=== PATIENT | female | born 1950 | race Two or more races ===

== ENCOUNTER 2016-04-15 00:12 | Inpatient (IN) | payer MEDICARE, MEDICAID ==
[~2016-04-15] VITALS: Ht 157.5 cm; Wt 83.8 kg
[~2016-04-15 00:12] MED LIST: ASPI81TA27 PO; GABA-494 PO; LOSA100T27 PO; OYST500T48 OR; PRAV20TA3 PO; TRAM50TA2 PO
[2016-04-15] MEDS ORDERED: SODIUM CHLORIDE 0.9% 1,000 ML IV ONE (10:43)
[2016-04-15] MEDS ORDERED: PROMETHAZINE HCL 25 MG/ML 1ML IV ONE (10:45)
[2016-04-15] MEDS ORDERED: NALBUPHINE HCL 10 MG/1ml INJECTION IV ONE (10:45)
[2016-04-15 11:20] LABS: Basophils # (auto) 0.1 uL; Basophils % (auto) 0.9 % (0.0-2.0); Eosinophils # (auto) 0.1 uL; Eosinophils % (auto) 1.4 % (0.0-7.0); Hematocrit 27.3 % (36.0-46.0); Hemoglobin 9.1 g/dL (12.2-16.2); Lymphocytes # (auto) 1.6 uL; Mean Corpuscular Hemoglobin 29.3 pg (28.0-32.0); Mean Corpuscular Hgb Conc. 33.3 g/dL (32.0-36.0); Mean Platelet Volume 6.7 fL (7.4-10.4); Monocytes # (auto) 0.3 uL; Monocytes % (auto) 5.4 % (0.0-12.0); Neutrophils # (auto) 4.3 uL; Neutrophils % (auto) 67.3 % (37.0-80.0); Platelet Count (auto) 409 10^3/uL (140-450); Red Cell Distribution Width 13.7 % (11.6-16.0); White Blood Cell 6.4 10^3/uL (4.4-10.8)
[2016-04-15 11:33] LABS: INR 1.04 (0.9-1.15); Partial Thromboplastin Time 24.6 sec (22.64-33.71); Prothrombin Time 10.7 sec (9.37-12.3)
[2016-04-15 11:53] LABS: Albumin 3.2 g/dL (3.4-5.0); BUN/Creatinine Ratio 21.7; Bilirubin, Total 0.3 mg/dL (0.2-1.0); Calcium 8.7 mg/dL (8.5-10.1); Magnesium 2.4 mg/dL (1.6-2.6); Potassium 4.4 mmol/L (3.5-5.1); Total Protein 7.2 g/dL (6.4-8.2)
[2016-04-15 13:48] LABS: Urine Bilirubin Negative (Negative); Urine Blood Negative /uL (Negative); Urine Color Colorless (Yellow); Urine Glucose Normal (Normal); Urine Ketone Negative (Negative); Urine Nitrite Negative (Negative); Urine RBC 1 /hpf (0 - 4); Urine Squamous Epithelial Cell FEW /hpf (<5); Urine Urobilinogen Normal (Negative); Urine pH 5.5 (5.0-8.0)
[2016-04-15] MEDS ORDERED: cefTRIAXone 1GM/50ML D5W 50 ML IV ONE ×2 (15:15→15:30)
[2016-04-15] MEDS: SODIUM CHLORIDE 0.9% 1,000 ML IV SCH (15:17)
[2016-04-15] MEDS ORDERED: HYDROcodone-ACET 5/325MG TAB PO PRN (15:30)
[2016-04-15] MEDS ORDERED: MORPHINE SULF INJ 2 MG/ML SYRINGE 1ML IV PRN ×2 (15:30)
[2016-04-15] MEDS ORDERED: ACETAMINOPHEN 500 MG TAB PO PRN (15:30)
[2016-04-15] MEDS ORDERED: TEMAZEPAM 15 MG CAP PO PRN (15:30)
[2016-04-15] MEDS ORDERED: PROMETHAZINE HCL 25 MG/ML 1ML IV PRN (15:30)
[2016-04-15] MEDS ORDERED: traMADol HCL 50 MG TAB PO PRN (15:30)
[2016-04-15] MEDS ORDERED: LACTULOSE 20Gm/30ML SOLN PO PRN (15:30)
[2016-04-15] MEDS ORDERED: LORazepam 0.5 MG TAB PO PRN (15:30)
[2016-04-15] MEDS ORDERED: NITROGLYCERIN 0.4 MG SL TAB SL PRN (15:30)
[2016-04-15] MEDS ORDERED: ASPirin-EC 81 mg tab PO ONE (15:45)
[2016-04-15] MEDS ORDERED: GABAPENTIN 100 MG CAP PO ONE (15:45)
[2016-04-15 15:48] LABS: Cholesterol 121 mg/dL (<200); HDL Cholesterol 39 mg/dL (40-59); LDL Cholesterol 63 mg/dL (<100); Triglycerides 212 mg/dL (<150)
[2016-04-15] MEDS ORDERED: LOSARTAN POTASSIUM 50 MG TAB PO ONE (16:00)
[2016-04-15 16:01] LABS: Temperature: 23.1 C (20.0-25.0)
[2016-04-15] MEDS: ENOXAPARIN SOD 40 MG/0.4 ML SYRINGE SC SCH (16:33)
[2016-04-15] MEDS ORDERED: OYSTER SHELL CALCIUM 500 MG OR SCH (22:00)
[2016-04-15] MEDS: FAMOTIDINE 20 MG TAB PO SCH (22:00)
[2016-04-15] MEDS: ATORVASTATIN 20 MG TAB PO SCH (22:00)
[2016-04-15 22:10] VITALS: BP 153/78
[2016-04-16] MEDS: SODIUM CHLORIDE 0.9% 1,000 ML IV SCH (03:47)
[2016-04-16 05:09] VITALS: BP 95/52
[2016-04-16 06:49] LABS: Basophils # (auto) 0 uL; Basophils % (auto) 0.6 % (0.0-2.0); Eosinophils # (auto) 0.1 uL; Eosinophils % (auto) 1.5 % (0.0-7.0); Hematocrit 27.9 % (36.0-46.0); Hemoglobin 9.3 g/dL (12.2-16.2); Lymphocytes # (auto) 1.6 uL; Lymphocytes % (auto) 29.4 % (10.0-50.0); Mean Corpuscular Hemoglobin 29.2 pg (28.0-32.0); Mean Corpuscular Hgb Conc. 33.3 g/dL (32.0-36.0); Mean Corpuscular Volume 87.8 fL (80.0-100.0); Mean Platelet Volume 7.3 fL (7.4-10.4); Monocytes # (auto) 0.3 uL; Monocytes % (auto) 5.7 % (0.0-12.0); Neutrophils # (auto) 3.4 uL; Neutrophils % (auto) 62.8 % (37.0-80.0); Platelet Count (auto) 368 10^3/uL (140-450); White Blood Cell 5.4 10^3/uL (4.4-10.8)
[2016-04-16 07:03] LABS: INR 1.04 (0.9-1.15); Prothrombin Time 10.7 sec (9.37-12.3)
[2016-04-16 07:12] LABS: BUN/Creatinine Ratio 15.8; Calcium 8.1 mg/dL (8.5-10.1); Potassium 3.9 mmol/L (3.5-5.1)
[2016-04-16 07:15] LABS: Bilirubin, Total 0.2 mg/dL (0.2-1.0); Total Protein 6.8 g/dL (6.4-8.2)
[2016-04-16 09:00] VITALS: BP 151/72
[2016-04-16] MEDS ORDERED: cefTRIAXone 1GM/50ML D5W 50 ML IV SCH (09:00)
[2016-04-16] MEDS ORDERED: ASPirin-EC 81 mg tab PO SCH (10:00)
[2016-04-16] MEDS ORDERED: LOSARTAN POTASSIUM 50 MG TAB PO SCH (10:00)
[2016-04-16] MEDS ORDERED: GABAPENTIN 100 MG CAP PO SCH (10:00)
[2016-04-16] MEDS: ATORVASTATIN 20 MG TAB PO SCH (10:40)
[2016-04-16] MEDS: ENOXAPARIN SOD 40 MG/0.4 ML SYRINGE SC SCH (10:40)
[2016-04-16] MEDS: FAMOTIDINE 20 MG TAB PO SCH (10:41)
[2016-04-16 13:26] VITALS: BP 151/72
== END 2016-04-16 14:26 | disposition home or self-care (01) | DRG 69 ==
LOC: EDBD 00:12 → ER 00:15 → TELE 00:16 → TELE-EAST 22:16
PROVIDERS: ADMIT Internal Medicine; ATTEND Internal Medicine
DX: G45.9 Transient cerebral ischemic attack, unspecified (principal); N39.0 Urinary tract infection, site not specified; E44.1 Mild protein-calorie malnutrition; D64.9 Anemia, unspecified; I10 Essential (primary) hypertension; I25.10 Atherosclerotic heart disease of native coronary artery without angina pectoris; M19.90 Unspecified osteoarthritis, unspecified site; E03.9 Hypothyroidism, unspecified; H26.9 Unspecified cataract; E66.01 Morbid (severe) obesity due to excess calories; E78.5 Hyperlipidemia, unspecified; Z79.82 Long term (current) use of aspirin; Z95.0 Presence of cardiac pacemaker; Z86.73 Personal history of transient ischemic attack (TIA), and cerebral infarction without residual deficits; Z87.891 Personal history of nicotine dependence; Z98.51 Tubal ligation status; Z68.33 Body mass index [BMI] 33.0-33.9, adult
CPT/HCPCS: 36415; 70450; 71020; 80053; 80061; 81001; 82550; 82607; 82746; 83735; 84443; 85025; 85610; 85652; 85730; 87040; 87081; 87086; 93005; 93306; 93886; 94761; 96361; 96365; 96366; 96375; G0434; J0696

== ENCOUNTER 2017-04-10 08:24 | Emergency (ER) | payer MEDICARE, MEDICAID ==
[~2017-04-10] VITALS: Ht 160 cm; Wt 83.9 kg
[~2017-04-10 08:24] MED LIST changes: -GABA-494 PO; +GABA100C9 PO
[2017-04-10] MEDS ORDERED: fentaNYL CITRATE 5 ML ONE (13:34)
[2017-04-10] MEDS ORDERED: MIDAZOLAM HCL 5 MG/ML-1ML VIAL IV ONE (13:45)
[2017-04-10] MEDS ORDERED: fentaNYL CITRATE 100 MCG/2 ML VL IV ONE (13:45)
[2017-04-10 15:58] VITALS: BP 162/85
== END 2017-04-10 16:26 | disposition home or self-care (01) ==
LOC: EDBD 08:24 → EDUNIT# 08:24 → ER 08:39
DX: S43.014A Anterior dislocation of right humerus, initial encounter (principal); I25.10 Atherosclerotic heart disease of native coronary artery without angina pectoris; I10 Essential (primary) hypertension; Z86.73 Personal history of transient ischemic attack (TIA), and cerebral infarction without residual deficits; Z79.82 Long term (current) use of aspirin; W01.0XXA Fall on same level from slipping, tripping and stumbling without subsequent striking against object, initial encounter; Y93.89 Activity, other specified; Y92.098 Other place in other non-institutional residence as the place of occurrence of the external cause; Y99.8 Other external cause status
CPT/HCPCS: 23650; 73020; 73060; 96374; 99152; 99153; 99285; J2250; J3010; J7030

== ENCOUNTER 2017-12-06 10:04 | Inpatient (IN) | payer MEDICARE, MEDICAID ==
[~2017-12-06] VITALS: Ht 154.9 cm; Wt 84.4 kg
[2017-12-06 12:44] LABS: Basophils # (auto) 0.1 uL; Basophils % (auto) 0.9 % (0.0-2.0); Eosinophils # (auto) 0.1 uL; Eosinophils % (auto) 1.8 % (0.0-7.0); Hematocrit 34.8 % (36.0-46.0); Hemoglobin 11.8 g/dL (12.2-16.2); Lymphocytes # (auto) 1.8 uL; Lymphocytes % (auto) 28.7 % (10.0-50.0); Mean Corpuscular Hemoglobin 29.8 pg (28.0-32.0); Mean Corpuscular Hgb Conc. 33.9 g/dL (32.0-36.0); Monocytes # (auto) 0.3 uL; Monocytes % (auto) 5.2 % (0.0-12.0); Neutrophils # (auto) 4.1 uL; Neutrophils % (auto) 63.4 % (37.0-80.0); Platelet Count (auto) 265 10^3/uL (140-450); Red Blood Cells 3.95 10^6/uL (4.0-5.20); Red Cell Distribution Width 13.3 % (11.8-14.3); White Blood Cell 6.4 10^3/uL (4.4-10.8)
[2017-12-06 12:56] LABS: INR 0.93 (0.9-1.15); Partial Thromboplastin Time 26.3 sec (23.78-33.04)
[2017-12-06 13:07] LABS: Albumin 3.9 g/dL (3.4-5.0); BUN/Creatinine Ratio 17.8; Bilirubin, Total 0.4 mg/dL (0.2-1.0); Calcium 8.7 mg/dL (8.5-10.1); Total Protein 8.1 g/dL (6.4-8.2)
[2017-12-06] MEDS ORDERED: LOSARTAN POTASSIUM 50 MG TAB PO ONE (15:00)
[2017-12-06] MEDS ORDERED: ONDANSETRON HCL 4 MG/2 ML VIAL IV PRN (15:00)
[2017-12-06] MEDS ORDERED: NITROGLYCERIN 0.4 MG SL TAB SL PRN (15:00)
[2017-12-06] MEDS ORDERED: MORPHINE SULF INJ 2 MG/ML SYRINGE 1ML IV PRN (15:00)
[2017-12-06] MEDS ORDERED: GABAPENTIN 100 MG CAP PO ONE (15:15)
[2017-12-06] MEDS ORDERED: ASPirin 81 mg TAB PO ONE (15:15)
[2017-12-06] MEDS: GABAPENTIN 100 MG CAP PO SCH (21:00)
[2017-12-06] MEDS: traMADol HCL 50 MG TAB PO PRN (21:36)
[2017-12-06] MEDS: ATORVASTATIN 20 MG TAB PO SCH (21:36)
[2017-12-07] VITALS (7 sets, daily range): BP systolic 114–156; BP diastolic 55–63
[2017-12-07] MEDS: traMADol HCL 50 MG TAB PO PRN ×2 (05:15→21:04)
[2017-12-07 07:36] LABS: Cholesterol 161 mg/dL (< 200); HDL Cholesterol 42 mg/dL (40-59); LDL Cholesterol 99 mg/dL (< 100); Triglycerides 177 mg/dL (< 150)
[2017-12-07] MEDS: ASPirin 81 mg TAB PO SCH (09:53)
[2017-12-07] MEDS: LOSARTAN POTASSIUM 50 MG TAB PO SCH (09:54)
[2017-12-07] MEDS: GABAPENTIN 100 MG CAP PO SCH (21:04)
[2017-12-07] MEDS: ATORVASTATIN 20 MG TAB PO SCH (21:04)
[2017-12-08 05:00] VITALS: BP 135/70
[2017-12-08 08:47] VITALS: BP 141/58
[2017-12-08] MEDS: traMADol HCL 50 MG TAB PO PRN (09:25)
[2017-12-08] MEDS: LOSARTAN POTASSIUM 50 MG TAB PO SCH (09:25)
[2017-12-08] MEDS: ASPirin 81 mg TAB PO SCH (09:25)
[2017-12-08 12:47] VITALS: BP 140/79
== END 2017-12-08 16:20 | disposition home or self-care (01) | DRG 69 ==
LOC: ER 10:04 → TELE 10:05 → TELE-WESTW 22:25
PROVIDERS: ADMIT Internal Medicine; ATTEND Internal Medicine
DX: G45.9 Transient cerebral ischemic attack, unspecified (principal); R20.2 Paresthesia of skin; N18.3 Chronic kidney disease, stage 3 (moderate); F17.200 Nicotine dependence, unspecified, uncomplicated; E78.5 Hyperlipidemia, unspecified; I25.10 Atherosclerotic heart disease of native coronary artery without angina pectoris; I12.9 Hypertensive chronic kidney disease with stage 1 through stage 4 chronic kidney disease, or unspecified chronic kidney disease; I07.1 Rheumatic tricuspid insufficiency; Z96.659 Presence of unspecified artificial knee joint; M19.90 Unspecified osteoarthritis, unspecified site; Z79.82 Long term (current) use of aspirin; Z79.899 Other long term (current) drug therapy; Z86.73 Personal history of transient ischemic attack (TIA), and cerebral infarction without residual deficits; Z95.0 Presence of cardiac pacemaker
CPT/HCPCS: 36415; 70450; 71046; 80053; 80061; 84443; 85025; 85610; 85730; 93005; 93306; 93886; 94761; J2405